=== PATIENT | female | born 1960 | race Two or more races ===

== ENCOUNTER 2024-09-22 11:23 | Outpatient (CLI) | payer MEDICAID, SELFPAY | END 2024-09-22 11:24 | disposition home or self-care (01) | LOC: NFLDREF 09-26 03:22 | PROVIDERS: Visit Provider Physician Assistant Medical | DX: I10 Essential (primary) hypertension (principal); E11.9 Type 2 diabetes mellitus without complications; N93.9 Abnormal uterine and vaginal bleeding, unspecified; K76.0 Fatty (change of) liver, not elsewhere classified | CPT/HCPCS: 80053; 80061; 82043; 82570; 84439; 84443 ==

== ENCOUNTER 2025-02-07 09:49 | Outpatient (CLI) | payer MEDICAID, SELFPAY | END 2025-02-07 09:50 | disposition home or self-care (01) | LOC: FRMREF 09:50 | PROVIDERS: PCP Physician Assistant Medical; Visit Provider Physician Assistant Medical | DX: E03.8 Other specified hypothyroidism (principal) | CPT/HCPCS: 84443 ==